=== PATIENT | male | born 1960 | race Caucasian/White ===

== ENCOUNTER 2022-05-11 15:26 | Inpatient (IN) | payer MEDICAID ==
[~2022-05-11] VITALS: Ht 177.8 cm; Wt 65.8 kg
[2022-05-11 16:04] VITALS: BP_SYST 126
[2022-05-11] MEDS ORDERED: NACL 0.9% 1,000 ML IV ONE (16:15)
[2022-05-11 16:51] LABS: BASOPHILS % (AUTO) 0.6 % (0.0-2.0); EOSINOPHILS # (AUTO) 0.5 K/uL (0.0-0.4); EOSINOPHILS % (AUTO) 6.9 % (0.0-4.0); HEMATOCRIT 33.7 % (36-54); HEMOGLOBIN 10.9 g/dL (14.0-18.0); LYMPHOCYTES # (AUTO) 0.6 K/uL (1.0-5.5); LYMPHOCYTES % (AUTO) 9.1 % (20.5-51.5); MEAN CORPUSCULAR HEMOGLOBIN 28 pg (27-31); MEAN CORPUSCULAR HGB CONC 33 % (32-36); MEAN CORPUSCULAR VOLUME 87 fL (79.0-98.0); MONOCYTES # (AUTO) 0.2 K/uL (0.0-1.0); MONOCYTES % (AUTO) 3.2 % (1.7-9.3); NEUTROPHILS # (AUTO) 5.4 K/uL (1.8-7.7); NEUTROPHILS % (AUTO) 80.2 % (40.0-70.0); PLATELET COUNT (AUTO) 110 K/uL (130-430); RED BLOOD CELL COUNT(AUTO) 3.88 MIL/uL (4.2-6.2); RED CELL DISTRIBUTION WIDTH 16.9 % (9.0-15.0); WHITE BLOOD COUNT (AUTO) 6.7 K/uL (4.8-10.8)
[2022-05-11 17:16] LABS: ALANINE AMINOTRANSFERASE 14 U/L (12-78); ALBUMIN 3.4 g/dL (3.4-4.8); ASPARTATE AMINOTRANSFERASE 16 U/L (10-37); CALCIUM 9.6 mg/dL (8.4-11.0); CHLORIDE 102 mmol/L (98-107); CREATININE 0.59 mg/dL (0.55-1.30); GLUCOSE 121 mg/dL (70-99); TOTAL BILIRUBIN 0.4 mg/dL (0.0-1.0); UREA NITROGEN, BLOOD 21 mg/dL (8-21)
[2022-05-11 17:17] LABS: ANION GAP < 3 (5-15); GFR AFRICAN AMERICAN 180 mL/min (>90)
[2022-05-11] MEDS ORDERED: TAMSULOSIN HCL 0.4 MG CAP PO ONE (17:30)
[2022-05-11 23:00] LABS: INR 1.1 (0.80-1.20); PROTHROMBIN TIME 11.5 SECS (9.5-12.5)
[2022-05-11] MEDS ORDERED: ACET325T GT (23:09)
[2022-05-11] MEDS ORDERED: ALBU2.5V7 INH ×2 (23:10→23:11)
[2022-05-11] MEDS ORDERED: NOR10 GT (23:11)
[2022-05-11] MEDS ORDERED: ARGI1POW13 GT (23:13)
[2022-05-11] MEDS ORDERED: LIP20 GT (23:13)
[2022-05-11] MEDS ORDERED: FER300L GT (23:14)
[2022-05-11] MEDS ORDERED: CHLO473M5 PO (23:14)
[2022-05-11] MEDS ORDERED: TAMS-11 GT ×2 (23:15→23:18)
[2022-05-11] MEDS ORDERED: HYDR-4038 GT (23:19)
[2022-05-11] MEDS ORDERED: GEL3000G MC (23:21)
[2022-05-11] MEDS ORDERED: LEVE100S GT (23:23)
[2022-05-11] MEDS ORDERED: MOM GT (23:24)
[2022-05-11] MEDS ORDERED: MULT-1117 GT (23:25)
[2022-05-11] MEDS ORDERED: HYDR-3917 GT (23:28)
[2022-05-11] MEDS ORDERED: PANT40SU2 GT (23:30)
[2022-05-11] MEDS ORDERED: AMIN30LI2 GT (23:31)
[2022-05-11] MEDS ORDERED: SENN-295 GT (23:33)
[2022-05-11] MEDS ORDERED: ASCO500T20 GT (23:34)
[2022-05-11] MEDS ORDERED: UTI-STAT GT (23:42)
[2022-05-12] MEDS ORDERED: MAGNESIUM SULFATE 50 ML IV PRN (09:15)
[2022-05-12] MEDS ORDERED: MUPIROCIN 2% TOPICAL OINTMENT 22 GM NS PRN (09:15)
[2022-05-12] MEDS ORDERED: MORPHINE 2 MG/ML INJ. SYRINGE IVP PRN (09:15)
[2022-05-12] MEDS ORDERED: ACETAMINOPHEN 325 MG TABLET PO PRN ×2 (09:15→12:30)
[2022-05-12] MEDS ORDERED: DOCUSATE SODIUM 100 MG CAPSULE PO PRN (09:15)
[2022-05-12] MEDS ORDERED: LORazepam 2 MG/ML VIAL IVP PRN (09:15)
[2022-05-12] MEDS ORDERED: ZOLPIDEM TARTRATE 5 MG TABLET PO PRN (09:15)
[2022-05-12] MEDS ORDERED: NALOXONE HCL 0.4 MG/ML AMP (NARCAN) IVP PRN ×2 (09:15)
[2022-05-12] MEDS ORDERED: ONDANSETRON HCL 4 MG/2 ML VIAL IVP PRN (09:15)
[2022-05-12 10:23] VITALS: BP_SYST 121
[2022-05-12] MEDS ORDERED: levETIRAcetam 500 MG TABLET ONE (18:11)
[2022-05-12] MEDS: LevETIRAcetam 500 MG/5 ML UDC ORAL LIQUID GT SCH (19:37)
[2022-05-12 23:08] VITALS: BP_SYST 147
[2022-05-12] MEDS: ATORVASTATIN 20 MG TABLET GT SCH (23:39)
[2022-05-12] MEDS: TAMSULOSIN HCL 0.4 MG CAP GT SCH (23:39)
[2022-05-12] MEDS: POTASSIUM CHLORIDE 20 MEQ TAB.PRT.SR PO PRN (23:45)
[2022-05-13 00:44] VITALS: BP_SYST 130
[2022-05-13 08:09] VITALS: BP_SYST 117
[2022-05-13] MEDS: LevETIRAcetam 500 MG/5 ML UDC ORAL LIQUID GT SCH ×2 (08:30→22:06)
[2022-05-13] MEDS: amLODIPine BESYLATE 10 MG TABLET GT SCH (08:31)
[2022-05-13] MEDS: ASCORBIC ACID 500 MG TABLET GT SCH (08:31)
[2022-05-13] MEDS: IPRATROPIUM/ALBUTEROL SULFATE 3 ML AMPUL.NEB (DUONEB) INH PRN (11:17)
[2022-05-13] MEDS: FAMOTIDINE PF 20 MG/2 ML VIAL IVP SCH (11:18)
[2022-05-13 12:00] VITALS: BP_SYST 125
[2022-05-13 16:00] VITALS: BP_SYST 119
[2022-05-13 16:13] LABS: BASOPHILS % (AUTO) 0.3 % (0.0-2.0); EOSINOPHILS # (AUTO) 0.1 K/uL (0.0-0.4); EOSINOPHILS % (AUTO) 2.6 % (0.0-4.0); HEMATOCRIT 26.7 % (36-54); HEMOGLOBIN 8.9 g/dL (14.0-18.0); LYMPHOCYTES # (AUTO) 0.8 K/uL (1.0-5.5); LYMPHOCYTES % (AUTO) 15.9 % (20.5-51.5); MEAN CORPUSCULAR HEMOGLOBIN 29 pg (27-31); MEAN CORPUSCULAR HGB CONC 34 % (32-36); MEAN CORPUSCULAR VOLUME 87 fL (79.0-98.0); MONOCYTES # (AUTO) 0.5 K/uL (0.0-1.0); MONOCYTES % (AUTO) 9.7 % (1.7-9.3); NEUTROPHILS # (AUTO) 3.6 K/uL (1.8-7.7); NEUTROPHILS % (AUTO) 71.5 % (40.0-70.0); PLATELET COUNT (AUTO) 99 K/uL (130-430); RED BLOOD CELL COUNT(AUTO) 3.07 MIL/uL (4.2-6.2); WHITE BLOOD COUNT (AUTO) 5.1 K/uL (4.8-10.8)
[2022-05-13 17:07] LABS: CREATININE 0.75 mg/dL (0.55-1.30)
[2022-05-13] MEDS ORDERED: POTASSIUM CHLORIDE 40 MEQ, LIDOCAINE JECT 2% PF 100 MG 50 MG in NS 250 ML IV ONE (18:00)
[2022-05-13 20:00] VITALS: BP_SYST 161
[2022-05-13] MEDS: MORPHINE 2 MG/ML INJ. SYRINGE IVP PRN (21:43)
[2022-05-13] MEDS: TAMSULOSIN HCL 0.4 MG CAP GT SCH (22:07)
[2022-05-13] MEDS: ATORVASTATIN 20 MG TABLET GT SCH (22:11)
[2022-05-13] MEDS: POTASSIUM CHLORIDE 20 MEQ TAB.PRT.SR PO PRN (22:12)
[2022-05-14] MEDS: HEPARIN SODIUM,PORCINE 5,000 UNITS/ML VIAL SUBCUT SCH ×3 (00:41→21:00)
[2022-05-14 01:01] VITALS: BP_SYST 133
[2022-05-14] MEDS: IPRATROPIUM/ALBUTEROL SULFATE 3 ML AMPUL.NEB (DUONEB) INH PRN ×2 (04:06→11:35)
[2022-05-14 07:32] VITALS: BP_SYST 125
[2022-05-14 08:18] LABS: CALCIUM 8.8 mg/dL (8.4-11.0); CREATININE 0.69 mg/dL (0.55-1.30)
[2022-05-14 08:25] LABS: BASOPHILS % (AUTO) 0.4 % (0.0-2.0); EOSINOPHILS # (AUTO) 0.1 K/uL (0.0-0.4); HEMOGLOBIN 9.5 g/dL (14.0-18.0); LYMPHOCYTES % (AUTO) 22.4 % (20.5-51.5); MEAN CORPUSCULAR HEMOGLOBIN 29 pg (27-31); MEAN CORPUSCULAR HGB CONC 33 % (32-36); MEAN CORPUSCULAR VOLUME 88 fL (79.0-98.0); MONOCYTES # (AUTO) 0.5 K/uL (0.0-1.0); NEUTROPHILS # (AUTO) 2.8 K/uL (1.8-7.7); NEUTROPHILS % (AUTO) 63.2 % (40.0-70.0); PLATELET COUNT (AUTO) 102 K/uL (130-430); RED BLOOD CELL COUNT(AUTO) 3.31 MIL/uL (4.2-6.2); RED CELL DISTRIBUTION WIDTH 17.5 % (9.0-15.0); WHITE BLOOD COUNT (AUTO) 4.4 K/uL (4.8-10.8)
[2022-05-14] MEDS: FAMOTIDINE PF 20 MG/2 ML VIAL IVP SCH (09:03)
[2022-05-14] MEDS: LevETIRAcetam 500 MG/5 ML UDC ORAL LIQUID GT SCH ×2 (09:04→23:06)
[2022-05-14] MEDS: ASCORBIC ACID 500 MG TABLET GT SCH (09:06)
[2022-05-14] MEDS: amLODIPine BESYLATE 10 MG TABLET GT SCH (09:07)
[2022-05-14 11:34] VITALS: BP_SYST 121
[2022-05-14] MEDS: MORPHINE 2 MG/ML INJ. SYRINGE IVP PRN (12:49)
[2022-05-14 15:32] VITALS: BP_SYST 128
[2022-05-14 20:00] VITALS: BP_SYST 148
[2022-05-14] MEDS: ATORVASTATIN 20 MG TABLET GT SCH (23:06)
[2022-05-14] MEDS: POTASSIUM CHLORIDE 20 MEQ TAB.PRT.SR PO PRN (23:06)
[2022-05-14] MEDS: TAMSULOSIN HCL 0.4 MG CAP GT SCH (23:07)
[2022-05-15 01:05] VITALS: BP_SYST 136
[2022-05-15 07:25] LABS: BASOPHILS % (AUTO) 0.2 % (0.0-2.0); EOSINOPHILS # (AUTO) 0.1 K/uL (0.0-0.4); EOSINOPHILS % (AUTO) 2.4 % (0.0-4.0); HEMATOCRIT 29.9 % (36-54); HEMOGLOBIN 9.8 g/dL (14.0-18.0); LYMPHOCYTES # (AUTO) 0.9 K/uL (1.0-5.5); LYMPHOCYTES % (AUTO) 17.6 % (20.5-51.5); MEAN CORPUSCULAR HEMOGLOBIN 29 pg (27-31); MEAN CORPUSCULAR HGB CONC 33 % (32-36); MEAN CORPUSCULAR VOLUME 88 fL (79.0-98.0); MONOCYTES # (AUTO) 0.3 K/uL (0.0-1.0); MONOCYTES % (AUTO) 6.6 % (1.7-9.3); NEUTROPHILS # (AUTO) 3.8 K/uL (1.8-7.7); NEUTROPHILS % (AUTO) 73.2 % (40.0-70.0); PLATELET COUNT (AUTO) 115 K/uL (130-430); RED CELL DISTRIBUTION WIDTH 17.1 % (9.0-15.0); WHITE BLOOD COUNT (AUTO) 5.1 K/uL (4.8-10.8)
[2022-05-15 08:00] VITALS: BP_SYST 141
[2022-05-15 08:29] LABS: CALCIUM 9.7 mg/dL (8.4-11.0); CREATININE 0.75 mg/dL (0.55-1.30)
[2022-05-15] MEDS: LevETIRAcetam 500 MG/5 ML UDC ORAL LIQUID GT SCH (10:16)
[2022-05-15] MEDS: ASCORBIC ACID 500 MG TABLET GT SCH (10:16)
[2022-05-15] MEDS: amLODIPine BESYLATE 10 MG TABLET GT SCH (10:16)
[2022-05-15] MEDS: FAMOTIDINE PF 20 MG/2 ML VIAL IVP SCH (10:16)
[2022-05-15] MEDS: HEPARIN SODIUM,PORCINE 5,000 UNITS/ML VIAL SUBCUT SCH (10:21)
[2022-05-15 11:34] VITALS: BP_SYST 125
[2022-05-15] MEDS: POTASSIUM CHLORIDE 20 MEQ TAB.PRT.SR PO PRN (12:23)
[2022-05-15] MEDS ORDERED: 0.45% NS 500 ML IV SCH (12:45)
[2022-05-15] MEDS ORDERED: [UNRECOGNIZED DRUG - CODE] IV (12:47)
[2022-05-15] MEDS ORDERED: NL IV (12:47)
[2022-05-15 13:45] VITALS: BP_SYST 125
[2022-05-15] MEDS ORDERED: 0.45% NACL 1,000 ML IV SCH (13:45)
== END 2022-05-15 14:22 | DRG 466 ==
LOC: EDSEX 15:26 → SED 15:26 → STU 22:34
PROVIDERS: ADMIT General Practice; ATTEND General Practice
PROC: 5A1945Z Respiratory Ventilation, 24-96 Consecutive Hours (ICD-10-PCS; principal; 2022-05-11)
DX: T83.018A Breakdown (mechanical) of other urinary catheter, initial encounter (principal); G82.50 Quadriplegia, unspecified; J96.10 Chronic respiratory failure, unspecified whether with hypoxia or hypercapnia; L89.309 Pressure ulcer of unspecified buttock, unspecified stage; L89.109 Pressure ulcer of unspecified part of back, unspecified stage; D63.8 Anemia in other chronic diseases classified elsewhere; R33.9 Retention of urine, unspecified; K21.9 Gastro-esophageal reflux disease without esophagitis; Z93.0 Tracheostomy status; E87.6 Hypokalemia; R13.10 Dysphagia, unspecified; Y83.8 Other surgical procedures as the cause of abnormal reaction of the patient, or of later complication, without mention of misadventure at the time of the procedure; Z20.822 Contact with and (suspected) exposure to COVID-19; E78.5 Hyperlipidemia, unspecified; G40.909 Epilepsy, unspecified, not intractable, without status epilepticus; Z59.00 Homelessness unspecified; Z74.01 Bed confinement status; Z86.73 Personal history of transient ischemic attack (TIA), and cerebral infarction without residual deficits; Z87.440 Personal history of urinary (tract) infections; Z93.3 Colostomy status; Z98.2 Presence of cerebrospinal fluid drainage device; Y92.89 Other specified places as the place of occurrence of the external cause
CPT/HCPCS: 36415; 71045; 76770; 80048; 80053; 83036; 83605; 83735; 85025; 85610-TC; 85730-TC; 87040; 87070-TC; 87081; 87205-TC; 93005; 94002; 94003; 94640; 94760; 96360; 99285; G0378; J1644; J1953; J2270; J3480; J3490; J7050

== ENCOUNTER 2022-08-01 10:23 | Inpatient (IN) | payer MEDICAID ==
[~2022-08-01] VITALS: Ht 170.2 cm; Wt 71.7 kg
[2022-08-01] VITALS (17 sets, daily range): BP systolic 84–119
[~2022-08-01 10:23] MED LIST: ACET325T GT; ALBU2.5V7 INH; AMIN30LI2 GT; ARGI1POW13 GT; ASCO500T20 GT; CHLO473M5 PO; FER300L GT; GEL3000G MC; HYDR-3917 GT; HYDR-4038 GT; LEVE100S GT; LIP20 GT; MOM GT; MULT-1117 GT; NOR10 GT; PANT40SU2 GT; SENN-295 GT; TAMS-11 GT; UTI-STAT GT; [UNRECOGNIZED DRUG - CODE] IV
[2022-08-01 11:45] LABS: HEMATOCRIT 39.3 % (36-54); HEMOGLOBIN 12.7 g/dL (14.0-18.0); MEAN CORPUSCULAR HEMOGLOBIN 30 pg (27-31); MEAN CORPUSCULAR HGB CONC 32 % (32-36); MEAN CORPUSCULAR VOLUME 92 fL (79.0-98.0); PLATELET COUNT (AUTO) 182 K/uL (130-430); RED BLOOD CELL COUNT(AUTO) 4.28 MIL/uL (4.2-6.2); RED CELL DISTRIBUTION WIDTH 18.4 % (9.0-15.0); WHITE BLOOD COUNT (AUTO) 21.1 K/uL (4.8-10.8)
[2022-08-01 11:56] LABS: BILIRUBIN,URINE NEGATIVE (NEGATIVE); BLOOD, URINE NEGATIVE (NEGATIVE); CLARITY/URINE CLOUDY (CLEAR); COLOR,URINE YELLOW (YELLOW); GLUCOSE,URINE NEGATIVE (NEGATIVE); KETONES,URINE NEGATIVE (NEGATIVE); LEUKOCYTE ESTERASE ,URINE NEGATIVE (NEGATIVE); NITRITE, URINE NEGATIVE (NEGATIVE); PH,URINE >=9.0 (5.0-8.0); PROTEIN URINE 1+ (NEGATIVE); UROBILINOGEN,URINE 0.2 (0.2-1.0)
[2022-08-01 12:02] LABS: ANION GAP 15 (5-15); CHLORIDE 99 mmol/L (98-107); CREATININE 2.69 mg/dL (0.55-1.30); GLUCOSE 129 mg/dL (70-99); UREA NITROGEN, BLOOD 52 mg/dL (8-21)
[2022-08-01 12:03] LABS: BACTERIA,URINE None Seen /HPF (None Seen); RBC,URINE 0-3 /HPF (0-3); URINE AMORPHOUS PHOSPHATES 1+ /HPF (None Seen); WBC,URINE 0-3 /HPF (0-3)
[2022-08-01 12:05] LABS: GFR AFRICAN AMERICAN 31 mL/min (>90)
[2022-08-01 12:09] LABS: ALANINE AMINOTRANSFERASE 39 U/L (12-78); ALBUMIN 3.2 g/dL (3.4-4.8); ASPARTATE AMINOTRANSFERASE 55 U/L (10-37); TOTAL BILIRUBIN 2.5 mg/dL (0.0-1.0)
[2022-08-01] MEDS ORDERED: NACL 0.9% 2,000 ML IV ONE (12:15)
[2022-08-01] MEDS ORDERED: cefTRIAXone 1 GM in D5W 50 ML IV ONE (12:15)
[2022-08-01] MEDS ORDERED: cefTRIAXone 1 GM VIAL ONE (12:29)
[2022-08-01 13:04] LABS: BAND % (MANUAL) 31 % (0-6); BASOPHILS % (MANUAL) 0 % (0-2); EOSINOPHILS % (MANUAL) 0 % (0-7); LYMPHOCYTES % (MANUAL) 1 % (20-46); METAMYELOCYTES % 2 % (0-0); MONOCYTES % (MANUAL) 2 % (0-11)
[2022-08-01] MEDS ORDERED: IPRA0.2S53 HHN (13:31)
[2022-08-01] MEDS ORDERED: TAMS0.4C96 PO (13:31)
[2022-08-01] MEDS ORDERED: ENOX40DI8 SUBCUT (13:31)
[2022-08-01] MEDS ORDERED: AMLO10TA88 PO (13:31)
[2022-08-01] MEDS ORDERED: POLY238P32 PO (13:31)
[2022-08-01] MEDS ORDERED: LEVE100S (13:31)
[2022-08-01] MEDS ORDERED: ATOR20TA64 PO (13:31)
[2022-08-01] MEDS ORDERED: IPRA3AMP9 HHN (13:31)
[2022-08-01] MEDS ORDERED: NACL 0.9% 1,000 ML IV ONE (14:00)
[2022-08-01] MEDS ORDERED: NACL 0.9% 1,000 ML IV SCH (14:45)
[2022-08-01] MEDS ORDERED: PIPERACILLIN/TAZOBACTAM 2.25 GM in NS 50 ML IV ONE (15:00)
[2022-08-01] MEDS ORDERED: MEROPENEM 500 MG in NS 50 ML IV SCH (16:15)
[2022-08-01] MEDS ORDERED: NOREPINEPHRINE 4 MG/4 ML VIAL IV ONE (17:06)
[2022-08-01] MEDS ORDERED: ENOXAPARIN SODIUM 30 MG/0.3 ML SYRINGE SUBCUT ONE (17:15)
[2022-08-01] MEDS ORDERED: NALOXONE HCL 0.4 MG/ML AMP (NARCAN) IVP PRN (17:15)
[2022-08-01] MEDS ORDERED: HYDROcodone/ACETAMIN 5-325 MG TAB (NORCO/ VICODIN) GT PRN (17:15)
[2022-08-01] MEDS: NACL 0.9% 1,000 ML IV SCH ×2 (17:25→18:35)
[2022-08-01 17:48] LABS: INR 1.3 (0.80-1.20); PROTHROMBIN TIME 13.2 SECS (9.5-12.5)
[2022-08-01] MEDS ORDERED: VANCOMYCIN HCL 750 MG in NS 250 ML IV SCH (18:00)
[2022-08-01] MEDS ORDERED: PIPERACILLIN/TAZOBACTAM 2.25 GM/ D5W 50 ML IV SCH ×2 (18:00)
[2022-08-01] MEDS: PIPERACILLIN/TAZO 2.25G/DEX-IS 50 ML IV SCH (18:40)
[2022-08-01 19:57] LABS: CALCIUM 8.2 mg/dL (8.4-11.0); CREATININE 3.04 mg/dL (0.55-1.30)
[2022-08-01] MEDS: LevETIRAcetam 500 MG/5 ML UDC ORAL LIQUID GT SCH (20:25)
[2022-08-01] MEDS: CHLORHEXIDINE GLUC 0.12% 15 ML MOUTHWASH UDC MM SCH (20:25)
[2022-08-01] MEDS: metroNIDAZOLE 500 mg/NS 100 ML IV SCH (22:37)
[2022-08-02] VITALS (32 sets, daily range): BP systolic 82–140
[2022-08-02 01:01] LABS: CALCIUM 8.5 mg/dL (8.4-11.0); CREATININE 2.8 mg/dL (0.55-1.30)
[2022-08-02] MEDS: NACL 0.9% 1,000 ML IV SCH ×3 (01:42→14:46)
[2022-08-02] MEDS: PIPERACILLIN/TAZO 2.25G/DEX-IS 50 ML IV SCH ×5 (01:42→23:53)
[2022-08-02] MEDS: NOREPINEPHRINE BITARTRATE 4 MG in D5W 246 ML IV PRN ×2 (02:40→10:59)
[2022-08-02] MEDS: ACETAMINOPHEN 325 MG TABLET GT PRN (05:03)
[2022-08-02] MEDS: metroNIDAZOLE 500 mg/NS 100 ML IV SCH ×3 (05:04→21:44)
[2022-08-02 06:04] LABS: BASOPHILS % (AUTO) 0.1 % (0.0-2.0); EOSINOPHILS % (AUTO) 0.3 % (0.0-4.0); HEMATOCRIT 26.2 % (36-54); HEMOGLOBIN 8.3 g/dL (14.0-18.0); LYMPHOCYTES # (AUTO) 0.4 K/uL (1.0-5.5); LYMPHOCYTES % (AUTO) 3.3 % (20.5-51.5); MEAN CORPUSCULAR HEMOGLOBIN 30 pg (27-31); MEAN CORPUSCULAR HGB CONC 32 % (32-36); MEAN CORPUSCULAR VOLUME 93 fL (79.0-98.0); MONOCYTES # (AUTO) 0.5 K/uL (0.0-1.0); MONOCYTES % (AUTO) 4.2 % (1.7-9.3); NEUTROPHILS # (AUTO) 11.4 K/uL (1.8-7.7); NEUTROPHILS % (AUTO) 92.1 % (40.0-70.0); PLATELET COUNT (AUTO) 73 K/uL (130-430); RED BLOOD CELL COUNT(AUTO) 2.82 MIL/uL (4.2-6.2); RED CELL DISTRIBUTION WIDTH 18.4 % (9.0-15.0); WHITE BLOOD COUNT (AUTO) 12.3 K/uL (4.8-10.8)
[2022-08-02 06:20] LABS: ALBUMIN 1.5 g/dL (3.4-4.8); TOTAL BILIRUBIN 0.6 mg/dL (0.0-1.0)
[2022-08-02 09:00] LABS: CALCIUM 5.9 mg/dL (8.4-11.0)
[2022-08-02] MEDS ORDERED: ATORVASTATIN 20 MG TABLET PO SCH (09:00)
[2022-08-02] MEDS: CHLORHEXIDINE GLUC 0.12% 15 ML MOUTHWASH UDC MM SCH ×2 (10:24→21:42)
[2022-08-02] MEDS: LANSOPRAZOLE 30 MG CAPSULE.DR GT SCH (10:24)
[2022-08-02] MEDS: SENNOSIDES/DOCUSATE SODIUM 1 TAB TABLET(SENOKOT-S) GT SCH (10:24)
[2022-08-02] MEDS: LevETIRAcetam 500 MG/5 ML UDC ORAL LIQUID GT SCH ×2 (10:24→21:41)
[2022-08-02] MEDS: MULTIVITAMINS TAB 1 TABLET GT SCH (10:25)
[2022-08-02] MEDS: ENOXAPARIN SODIUM 30 MG/0.3 ML SYRINGE SUBCUT SCH (10:26)
[2022-08-02] MEDS: POLYETHYLENE GLYCOL 3350, 17 GM/ POWD.PACK PO SCH (10:27)
[2022-08-02] MEDS ORDERED: POTASSIUM CHLORIDE 40 MEQ in D5W 250 ML IV ONE ×2 (12:00→14:00)
[2022-08-02 12:32] LABS: BASOPHILS % (AUTO) 0.1 % (0.0-2.0); HEMATOCRIT 34.4 % (36-54); HEMOGLOBIN 10.9 g/dL (14.0-18.0); LYMPHOCYTES # (AUTO) 0.5 K/uL (1.0-5.5); LYMPHOCYTES % (AUTO) 2.8 % (20.5-51.5); MEAN CORPUSCULAR HEMOGLOBIN 29 pg (27-31); MEAN CORPUSCULAR HGB CONC 32 % (32-36); MEAN CORPUSCULAR VOLUME 93 fL (79.0-98.0); MONOCYTES # (AUTO) 0.5 K/uL (0.0-1.0); MONOCYTES % (AUTO) 2.9 % (1.7-9.3); NEUTROPHILS # (AUTO) 15.1 K/uL (1.8-7.7); NEUTROPHILS % (AUTO) 83.2 % (40.0-70.0); PLATELET COUNT (AUTO) 77 K/uL (130-430); RED CELL DISTRIBUTION WIDTH 17.9 % (9.0-15.0); WHITE BLOOD COUNT (AUTO) 18.1 K/uL (4.8-10.8)
[2022-08-02] MEDS ORDERED: CALCIUM GLUCONATE 2 GM in NS 100 ML IV ONE (13:00)
[2022-08-02] MEDS ORDERED: COMMUNICATION ORDER XX ONE (13:30)
[2022-08-02] MEDS ORDERED: NOREPINEPHRINE 4 MG/4 ML VIAL IV ONE (13:53)
[2022-08-02] MEDS: NOREPINEPHRINE BITARTRATE 16 MG in D5W 234 ML IV PRN ×2 (14:44→22:17)
[2022-08-02] MEDS ORDERED: MENTHOL/ZINC OXIDE 113 GM OINT. TP PRN (16:15)
[2022-08-02] MEDS: ALBUMIN HUMAN 25% 100 ML IV SCH ×2 (18:48→21:44)
[2022-08-02] MEDS: D5LR 1,000 ML IV SCH (21:36)
[2022-08-02] MEDS: LACTOBACILLUS RHAMNOSUS GG 1 CAP CAPSULE GT SCH (21:44)
[2022-08-02] MEDS: CIPROFLOXACIN HCL 500 MG TABLET GT SCH (21:45)
[2022-08-03] VITALS (43 sets, daily range): BP systolic 92–155
[2022-08-03] MEDS: ACETAMINOPHEN 325 MG TABLET GT PRN ×2 (00:41→00:42)
[2022-08-03] MEDS: ALBUMIN HUMAN 25% 100 ML IV SCH (02:33)
[2022-08-03] MEDS: D5LR 1,000 ML IV SCH ×3 (05:00→14:34)
[2022-08-03] MEDS: metroNIDAZOLE 500 mg/NS 100 ML IV SCH ×3 (05:18→21:20)
[2022-08-03] MEDS: PIPERACILLIN/TAZO 2.25G/DEX-IS 50 ML IV SCH (05:19)
[2022-08-03 06:54] LABS: ALBUMIN 3.1 g/dL (3.4-4.8); CALCIUM 8.9 mg/dL (8.4-11.0); CREATININE 1.44 mg/dL (0.55-1.30); TOTAL BILIRUBIN 0.8 mg/dL (0.0-1.0)
[2022-08-03 07:01] LABS: HEMATOCRIT 22.8 % (36-54); HEMOGLOBIN 7.6 g/dL (14.0-18.0); MEAN CORPUSCULAR HEMOGLOBIN 31 pg (27-31); MEAN CORPUSCULAR HGB CONC 34 % (32-36); MEAN CORPUSCULAR VOLUME 92 fL (79.0-98.0); RED BLOOD CELL COUNT(AUTO) 2.47 MIL/uL (4.2-6.2); RED CELL DISTRIBUTION WIDTH 17.6 % (9.0-15.0); WHITE BLOOD COUNT (AUTO) 8.5 K/uL (4.8-10.8)
[2022-08-03] MEDS: ALBUTEROL SULFATE 0.083% 2.5 MG/3 ML VIAL.NEB INH PRN (07:52)
[2022-08-03] MEDS: LACTOBACILLUS RHAMNOSUS GG 1 CAP CAPSULE GT SCH ×2 (08:41→21:17)
[2022-08-03] MEDS: LANSOPRAZOLE 30 MG CAPSULE.DR GT SCH (08:42)
[2022-08-03] MEDS: LevETIRAcetam 500 MG/5 ML UDC ORAL LIQUID GT SCH ×2 (08:42→21:19)
[2022-08-03] MEDS: ATORVASTATIN 20 MG TABLET GT SCH (08:43)
[2022-08-03] MEDS: MULTIVITAMINS TAB 1 TABLET GT SCH (08:43)
[2022-08-03] MEDS: POLYETHYLENE GLYCOL 3350, 17 GM/ POWD.PACK PO SCH (08:44)
[2022-08-03] MEDS: ENOXAPARIN SODIUM 30 MG/0.3 ML SYRINGE SUBCUT SCH (08:44)
[2022-08-03] MEDS: SENNOSIDES/DOCUSATE SODIUM 1 TAB TABLET(SENOKOT-S) GT SCH (08:44)
[2022-08-03] MEDS: CHLORHEXIDINE GLUC 0.12% 15 ML MOUTHWASH UDC MM SCH ×2 (08:44→21:19)
[2022-08-03] MEDS: BALSAM PERU/CASTOR OIL 56.7 GM OINT...G. TP SCH (08:45)
[2022-08-03] MEDS: CIPROFLOXACIN HCL 500 MG TABLET GT SCH (08:45)
[2022-08-03 09:18] LABS: PLATELET COUNT (AUTO) 35 K/uL (130-430)
[2022-08-03 10:02] LABS: BAND % (MANUAL) 24 % (0-6); BASOPHILS % (MANUAL) 0 % (0-2); EOSINOPHILS % (MANUAL) 0 % (0-7); LYMPHOCYTES % (MANUAL) 4 % (20-46); METAMYELOCYTES % 4 % (0-0); MONOCYTES % (MANUAL) 12 % (0-11)
[2022-08-03] MEDS ORDERED: CEFEPIME 2 GM in D5W 100 ML IV SCH (11:00)
[2022-08-03] MEDS ORDERED: FUROSEMIDE 20 MG/2 ML VIAL IVP ONE (11:45)
[2022-08-03 12:20] LABS: EOSINOPHILS # (AUTO) 0.1 K/uL (0.0-0.4); HEMOGLOBIN 8.6 g/dL (14.0-18.0); MEAN CORPUSCULAR HEMOGLOBIN 30 pg (27-31); MEAN CORPUSCULAR HGB CONC 32 % (32-36); MONOCYTES # (AUTO) 0.2 K/uL (0.0-1.0)
[2022-08-03 12:27] LABS: BASOPHILS % (AUTO) 0.2 % (0.0-2.0); EOSINOPHILS % (AUTO) 2.2 % (0.0-4.0); HEMATOCRIT 26.9 % (36-54); LYMPHOCYTES # (AUTO) 1.2 K/uL (1.0-5.5); LYMPHOCYTES % (AUTO) 32.6 % (20.5-51.5); MEAN CORPUSCULAR VOLUME 94 fL (79.0-98.0); NEUTROPHILS # (AUTO) 2.3 K/uL (1.8-7.7); RED BLOOD CELL COUNT(AUTO) 2.86 MIL/uL (4.2-6.2); RED CELL DISTRIBUTION WIDTH 18.3 % (9.0-15.0); WHITE BLOOD COUNT (AUTO) 3.8 K/uL (4.8-10.8)
[2022-08-03 12:29] LABS: CALCIUM 8.6 mg/dL (8.4-11.0); CREATININE 1.32 mg/dL (0.55-1.30)
[2022-08-03] MEDS ORDERED: AMIODARONE HCL 450 MG in D5W 241 ML IV SCH (12:30)
[2022-08-03 12:51] LABS: PLATELET COUNT (AUTO) 67 K/uL (130-430)
[2022-08-03] MEDS ORDERED: AMIODARONE HCL 150 MG/3ML VIAL IVP ONE (12:55)
[2022-08-03] MEDS ORDERED: K PHOS 15 MM in NS 250 ML IV ONE (13:30)
[2022-08-03] MEDS ORDERED: POTASSIUM CHLORIDE 40 MEQ in NS 250 ML IV SCH (14:00)
[2022-08-03] MEDS ORDERED: PANTOPRAZOLE SODIUM 80 MG in NS 100 ML IVP ONE (14:00)
[2022-08-03] MEDS: PANTOPRAZOLE SODIUM 40 MG in NS 50 ML IV SCH ×2 (14:37→20:54)
[2022-08-03] MEDS: AMIODARONE HCL 450 MG in D5W 241 ML IV SCH (17:55)
[2022-08-04] VITALS (48 sets, daily range): BP systolic 98–174
[2022-08-04] MEDS: PANTOPRAZOLE SODIUM 40 MG in NS 50 ML IV SCH ×5 (01:00→20:56)
[2022-08-04] MEDS: metroNIDAZOLE 500 mg/NS 100 ML IV SCH ×3 (06:22→22:03)
[2022-08-04] MEDS: ACETAMINOPHEN 325 MG TABLET GT PRN ×3 (06:37→20:03)
[2022-08-04 07:24] LABS: EOSINOPHILS % (AUTO) 0.5 % (0.0-4.0); HEMATOCRIT 22.9 % (36-54); HEMOGLOBIN 7.5 g/dL (14.0-18.0); LYMPHOCYTES # (AUTO) 0.3 K/uL (1.0-5.5); LYMPHOCYTES % (AUTO) 4.4 % (20.5-51.5); MEAN CORPUSCULAR HEMOGLOBIN 30 pg (27-31); MEAN CORPUSCULAR HGB CONC 33 % (32-36); MEAN CORPUSCULAR VOLUME 93 fL (79.0-98.0); MONOCYTES # (AUTO) 0.1 K/uL (0.0-1.0); NEUTROPHILS # (AUTO) 6.1 K/uL (1.8-7.7); NEUTROPHILS % (AUTO) 93.1 % (40.0-70.0); RED BLOOD CELL COUNT(AUTO) 2.47 MIL/uL (4.2-6.2); RED CELL DISTRIBUTION WIDTH 17.9 % (9.0-15.0); WHITE BLOOD COUNT (AUTO) 6.5 K/uL (4.8-10.8)
[2022-08-04 07:51] LABS: ALBUMIN 2.5 g/dL (3.4-4.8); CALCIUM 8.4 mg/dL (8.4-11.0); CREATININE 1.25 mg/dL (0.55-1.30); PHOSPHORUS 2.1 mg/dL (2.7-4.5); TOTAL BILIRUBIN 0.8 mg/dL (0.0-1.0)
[2022-08-04 08:25] LABS: PLATELET COUNT (AUTO) 30 K/uL (130-430)
[2022-08-04] MEDS: D5LR 1,000 ML IV SCH (08:45)
[2022-08-04] MEDS: LACTOBACILLUS RHAMNOSUS GG 1 CAP CAPSULE GT SCH ×2 (08:57→20:54)
[2022-08-04] MEDS: ATORVASTATIN 20 MG TABLET GT SCH (08:58)
[2022-08-04] MEDS: LevETIRAcetam 500 MG/5 ML UDC ORAL LIQUID GT SCH ×2 (08:58→20:54)
[2022-08-04] MEDS: MULTIVITAMINS TAB 1 TABLET GT SCH (08:59)
[2022-08-04] MEDS: SENNOSIDES/DOCUSATE SODIUM 1 TAB TABLET(SENOKOT-S) GT SCH (08:59)
[2022-08-04] MEDS: CHLORHEXIDINE GLUC 0.12% 15 ML MOUTHWASH UDC MM SCH ×2 (09:00→20:54)
[2022-08-04] MEDS: POLYETHYLENE GLYCOL 3350, 17 GM/ POWD.PACK PO SCH (09:00)
[2022-08-04] MEDS: BALSAM PERU/CASTOR OIL 56.7 GM OINT...G. TP SCH (09:00)
[2022-08-04] MEDS ORDERED: GASTROGRAFIN 120 ML ONE (09:37)
[2022-08-04] MEDS ORDERED: KCL 40 mEq in 100 mL (PREMIX) 100 ML IV ONE (10:15)
[2022-08-04 12:42] LABS: BASOPHILS % (AUTO) 0.1 % (0.0-2.0); EOSINOPHILS % (AUTO) 0.4 % (0.0-4.0); HEMATOCRIT 23.9 % (36-54); HEMOGLOBIN 7.7 g/dL (14.0-18.0); LYMPHOCYTES # (AUTO) 0.3 K/uL (1.0-5.5); LYMPHOCYTES % (AUTO) 3.9 % (20.5-51.5); MEAN CORPUSCULAR HEMOGLOBIN 30 pg (27-31); MEAN CORPUSCULAR HGB CONC 32 % (32-36); MEAN CORPUSCULAR VOLUME 93 fL (79.0-98.0); MONOCYTES # (AUTO) 0.1 K/uL (0.0-1.0); MONOCYTES % (AUTO) 1.6 % (1.7-9.3); RED BLOOD CELL COUNT(AUTO) 2.56 MIL/uL (4.2-6.2); RED CELL DISTRIBUTION WIDTH 17.8 % (9.0-15.0); WHITE BLOOD COUNT (AUTO) 7.4 K/uL (4.8-10.8)
[2022-08-04 13:00] LABS: INR 1.5 (0.80-1.20); PROTHROMBIN TIME 14.5 SECS (9.5-12.5)
[2022-08-04 13:01] LABS: ALBUMIN 2.6 g/dL (3.4-4.8); CALCIUM 8.6 mg/dL (8.4-11.0); CREATININE 1.04 mg/dL (0.55-1.30); TOTAL BILIRUBIN 0.8 mg/dL (0.0-1.0)
[2022-08-04 13:02] LABS: PLATELET COUNT (AUTO) 34 K/uL (130-430)
[2022-08-04] MEDS ORDERED: PHYTONADIONE 10 MG in NS 50 ML IV ONE (15:30)
[2022-08-04] MEDS: D5W 1,000 ML IV SCH (17:48)
[2022-08-04] MEDS: AMIODARONE HCL 450 MG in D5W 241 ML IV SCH (18:49)
[2022-08-04] MEDS ORDERED: cloNIDine HCL 0.2 MG TABLET GT PRN (20:37)
[2022-08-05] VITALS (41 sets, daily range): BP systolic 94–155
[2022-08-05] MEDS: PANTOPRAZOLE SODIUM 40 MG in NS 50 ML IV SCH ×5 (01:46→22:41)
[2022-08-05] MEDS: ACETAMINOPHEN 650 MG/20.3 ML UDC GT PRN (03:29)
[2022-08-05] MEDS: D5LR 1,000 ML IV SCH (04:42)
[2022-08-05] MEDS: metroNIDAZOLE 500 mg/NS 100 ML IV SCH ×3 (05:21→22:41)
[2022-08-05 07:19] LABS: BASOPHILS % (AUTO) 0.1 % (0.0-2.0); EOSINOPHILS % (AUTO) 0.3 % (0.0-4.0); HEMATOCRIT 22.4 % (36-54); HEMOGLOBIN 7.3 g/dL (14.0-18.0); LYMPHOCYTES # (AUTO) 0.4 K/uL (1.0-5.5); LYMPHOCYTES % (AUTO) 8.2 % (20.5-51.5); MEAN CORPUSCULAR HEMOGLOBIN 30 pg (27-31); MEAN CORPUSCULAR HGB CONC 33 % (32-36); MEAN CORPUSCULAR VOLUME 93 fL (79.0-98.0); MONOCYTES # (AUTO) 0.2 K/uL (0.0-1.0); MONOCYTES % (AUTO) 3.2 % (1.7-9.3); NEUTROPHILS # (AUTO) 4.4 K/uL (1.8-7.7); NEUTROPHILS % (AUTO) 88.2 % (40.0-70.0); RED BLOOD CELL COUNT(AUTO) 2.42 MIL/uL (4.2-6.2); RED CELL DISTRIBUTION WIDTH 17.4 % (9.0-15.0)
[2022-08-05 07:33] LABS: PLATELET COUNT (AUTO) 29 K/uL (130-430)
[2022-08-05 07:39] LABS: INR 1.3 (0.80-1.20); PROTHROMBIN TIME 12.6 SECS (9.5-12.5)
[2022-08-05 07:52] LABS: ALBUMIN 2.3 g/dL (3.4-4.8); CALCIUM 8.3 mg/dL (8.4-11.0); CREATININE 0.92 mg/dL (0.55-1.30); TOTAL BILIRUBIN 0.7 mg/dL (0.0-1.0)
[2022-08-05] MEDS ORDERED: KCL 40 mEq in 100 mL (PREMIX) 100 ML IV PRN (10:15)
[2022-08-05] MEDS: LACTOBACILLUS RHAMNOSUS GG 1 CAP CAPSULE GT SCH ×2 (12:22→20:40)
[2022-08-05] MEDS: MULTIVITAMINS TAB 1 TABLET GT SCH (12:23)
[2022-08-05] MEDS: LevETIRAcetam 500 MG/5 ML UDC ORAL LIQUID GT SCH ×2 (12:23→20:40)
[2022-08-05] MEDS: ATORVASTATIN 20 MG TABLET GT SCH (12:23)
[2022-08-05] MEDS: CHLORHEXIDINE GLUC 0.12% 15 ML MOUTHWASH UDC MM SCH ×2 (12:24→20:41)
[2022-08-05] MEDS: POLYETHYLENE GLYCOL 3350, 17 GM/ POWD.PACK PO SCH (12:24)
[2022-08-05] MEDS: BALSAM PERU/CASTOR OIL 56.7 GM OINT...G. TP SCH (12:24)
[2022-08-05] MEDS: SENNOSIDES/DOCUSATE SODIUM 1 TAB TABLET(SENOKOT-S) GT SCH (12:24)
[2022-08-05] MEDS: D5W 1,000 ML IV SCH (12:26)
[2022-08-05] MEDS: AMIODARONE HCL 450 MG in D5W 241 ML IV SCH (12:28)
[2022-08-05] MEDS ORDERED: MEROPENEM 1 GM in NS 100 ML IV ONE (18:00)
[2022-08-05] MEDS ORDERED: POTASSIUM CHLORIDE 40 MEQ in D5W 250 ML IV SCH (20:00)
[2022-08-05] MEDS: POTASSIUM CHLORIDE 40 MEQ in NS 250 ML IV SCH (20:41)
[2022-08-05] MEDS: MEROPENEM 1 GM in NS 100 ML IV SCH (23:10)
[2022-08-06] VITALS (28 sets, daily range): BP systolic 110–154
[2022-08-06] MEDS: POTASSIUM CHLORIDE 40 MEQ in NS 250 ML IV SCH (00:46)
[2022-08-06] MEDS: PANTOPRAZOLE SODIUM 40 MG in NS 50 ML IV SCH ×5 (03:09→23:17)
[2022-08-06] MEDS: AMIODARONE HCL 450 MG in D5W 241 ML IV SCH (03:23)
[2022-08-06] MEDS: MEROPENEM 1 GM in NS 100 ML IV SCH ×3 (05:01→22:47)
[2022-08-06] MEDS: D5W 1,000 ML IV SCH ×2 (06:03→18:43)
[2022-08-06] MEDS: metroNIDAZOLE 500 mg/NS 100 ML IV SCH ×3 (06:03→22:49)
[2022-08-06 07:07] LABS: BASOPHILS % (AUTO) 0.1 % (0.0-2.0); EOSINOPHILS # (AUTO) 0.1 K/uL (0.0-0.4); EOSINOPHILS % (AUTO) 1.9 % (0.0-4.0); HEMATOCRIT 23.4 % (36-54); HEMOGLOBIN 7.6 g/dL (14.0-18.0); LYMPHOCYTES # (AUTO) 0.5 K/uL (1.0-5.5); LYMPHOCYTES % (AUTO) 16.3 % (20.5-51.5); MEAN CORPUSCULAR HEMOGLOBIN 30 pg (27-31); MEAN CORPUSCULAR HGB CONC 32 % (32-36); MEAN CORPUSCULAR VOLUME 94 fL (79.0-98.0); MONOCYTES # (AUTO) 0.2 K/uL (0.0-1.0); MONOCYTES % (AUTO) 6.3 % (1.7-9.3); NEUTROPHILS # (AUTO) 2.4 K/uL (1.8-7.7); NEUTROPHILS % (AUTO) 75.4 % (40.0-70.0); RED CELL DISTRIBUTION WIDTH 17.4 % (9.0-15.0); WHITE BLOOD COUNT (AUTO) 3.2 K/uL (4.8-10.8)
[2022-08-06 07:36] LABS: INR 1.2 (0.80-1.20); PROTHROMBIN TIME 12.5 SECS (9.5-12.5)
[2022-08-06 07:54] LABS: ALBUMIN 2.3 g/dL (3.4-4.8); CALCIUM 8.3 mg/dL (8.4-11.0); CREATININE 0.86 mg/dL (0.55-1.30); PHOSPHORUS 1.7 mg/dL (2.7-4.5); TOTAL BILIRUBIN 0.5 mg/dL (0.0-1.0)
[2022-08-06 07:57] LABS: PLATELET COUNT (AUTO) 28 K/uL (130-430)
[2022-08-06] MEDS ORDERED: LACTOBACILLUS RHAMNOSUS GG 1 CAP CAPSULE PO SCH (10:45)
[2022-08-06] MEDS: LACTOBACILLUS RHAMNOSUS GG 1 CAP CAPSULE GT SCH ×2 (10:48→22:46)
[2022-08-06] MEDS: ATORVASTATIN 20 MG TABLET GT SCH (10:49)
[2022-08-06] MEDS: POLYETHYLENE GLYCOL 3350, 17 GM/ POWD.PACK PO SCH (10:49)
[2022-08-06] MEDS: SENNOSIDES/DOCUSATE SODIUM 1 TAB TABLET(SENOKOT-S) GT SCH (10:49)
[2022-08-06] MEDS: MULTIVITAMINS TAB 1 TABLET GT SCH (10:49)
[2022-08-06] MEDS: BALSAM PERU/CASTOR OIL 56.7 GM OINT...G. TP SCH (10:50)
[2022-08-06] MEDS ORDERED: POTASSIUM CHLORIDE 20 MEQ/PKT PACKET PO ONE (11:00)
[2022-08-06] MEDS: CHLORHEXIDINE GLUC 0.12% 15 ML MOUTHWASH UDC MM SCH ×2 (11:02→22:47)
[2022-08-06] MEDS: LevETIRAcetam 500 MG/5 ML UDC ORAL LIQUID GT SCH ×2 (11:02→22:46)
[2022-08-06 11:22] LABS: TOTAL IRON BIND. CAPACITY 252 ug/dL (250-450)
[2022-08-06] MEDS ORDERED: K PHOS 15 MM in NS 250 ML IV ONE (12:00)
[2022-08-06] MEDS: POTASSIUM CHLORIDE 20 MEQ/PKT PACKET PO SCH (21:00)
[2022-08-06] MEDS: AMIODARONE HCL 200 MG TABLET PO SCH (22:48)
[2022-08-07 02:12] VITALS: BP_SYST 152
[2022-08-07] MEDS: D5W 1,000 ML IV SCH ×2 (04:38→13:34)
[2022-08-07] MEDS: PANTOPRAZOLE SODIUM 40 MG in NS 50 ML IV SCH ×4 (04:40→20:56)
[2022-08-07] MEDS: MEROPENEM 1 GM in NS 100 ML IV SCH ×2 (05:36→13:09)
[2022-08-07] MEDS: metroNIDAZOLE 500 mg/NS 100 ML IV SCH ×2 (06:14→10:58)
[2022-08-07 07:11] LABS: ALBUMIN 2.3 g/dL (3.4-4.8); CALCIUM 8.1 mg/dL (8.4-11.0); CREATININE 0.83 mg/dL (0.55-1.30); TOTAL BILIRUBIN 0.5 mg/dL (0.0-1.0)
[2022-08-07 07:24] LABS: HEMATOCRIT 26.3 % (36-54); HEMOGLOBIN 8.4 g/dL (14.0-18.0); MEAN CORPUSCULAR HEMOGLOBIN 30 pg (27-31); MEAN CORPUSCULAR HGB CONC 32 % (32-36); MEAN CORPUSCULAR VOLUME 94 fL (79.0-98.0); RED BLOOD CELL COUNT(AUTO) 2.81 MIL/uL (4.2-6.2); RED CELL DISTRIBUTION WIDTH 17.7 % (9.0-15.0); WHITE BLOOD COUNT (AUTO) 4.7 K/uL (4.8-10.8)
[2022-08-07 08:00] VITALS: BP_SYST 131
[2022-08-07 08:22] VITALS: BP_SYST 134
[2022-08-07 08:59] LABS: PLATELET COUNT (AUTO) 47 K/uL (130-430)
[2022-08-07] MEDS: BALSAM PERU/CASTOR OIL 56.7 GM OINT...G. TP SCH (09:00)
[2022-08-07 10:52] LABS: ATYPICAL LYMPHOCYTES % 3 % (0-0); BAND % (MANUAL) 3 % (0-6); BASOPHILS % (MANUAL) 0 % (0-2); EOSINOPHILS % (MANUAL) 0 % (0-7); LYMPHOCYTES % (MANUAL) 11 % (20-46); MONOCYTES % (MANUAL) 5 % (0-11)
[2022-08-07] MEDS: POLYETHYLENE GLYCOL 3350, 17 GM/ POWD.PACK PO SCH (10:55)
[2022-08-07] MEDS: LevETIRAcetam 500 MG/5 ML UDC ORAL LIQUID GT SCH ×2 (10:55→21:02)
[2022-08-07] MEDS: LACTOBACILLUS RHAMNOSUS GG 1 CAP CAPSULE GT SCH ×2 (10:56→21:01)
[2022-08-07] MEDS: MULTIVITAMINS TAB 1 TABLET GT SCH (10:56)
[2022-08-07] MEDS: SENNOSIDES/DOCUSATE SODIUM 1 TAB TABLET(SENOKOT-S) GT SCH (10:56)
[2022-08-07] MEDS: POTASSIUM CHLORIDE 20 MEQ/PKT PACKET PO SCH ×2 (10:56→21:02)
[2022-08-07] MEDS: AMIODARONE HCL 200 MG TABLET PO SCH ×2 (10:56→21:00)
[2022-08-07] MEDS: ATORVASTATIN 20 MG TABLET GT SCH (10:57)
[2022-08-07] MEDS: CHLORHEXIDINE GLUC 0.12% 15 ML MOUTHWASH UDC MM SCH ×2 (10:57→21:03)
[2022-08-07 11:45] VITALS: BP_SYST 145
[2022-08-07 15:10] VITALS: BP_SYST 141
[2022-08-07 19:00] VITALS: BP_SYST 152
[2022-08-07] MEDS ORDERED: SOD FERRIC GLUC COMPLEX/SUC 125 MG in NS 100 ML IV SCH (19:00)
[2022-08-07] MEDS ORDERED: EPOETIN ALFA-EPBX 4,000 UNITS/ML VIAL SUBCUT ONE (19:00)
[2022-08-07] MEDS ORDERED: PANTOPRAZOLE SODIUM 40 MG/VIAL (PROTONIX) ONE (20:50)
[2022-08-08 00:19] VITALS: BP_SYST 133
[2022-08-08] MEDS: metroNIDAZOLE 500 mg/NS 100 ML IV SCH ×2 (00:26→06:31)
[2022-08-08] MEDS: PANTOPRAZOLE SODIUM 40 MG in NS 50 ML IV SCH ×2 (00:27→06:32)
[2022-08-08] MEDS: MEROPENEM 1 GM in NS 100 ML IV SCH ×3 (00:27→14:06)
[2022-08-08] MEDS: D5W 1,000 ML IV SCH (00:44)
[2022-08-08] MEDS: ACETAMINOPHEN 650 MG/20.3 ML UDC GT PRN (01:03)
[2022-08-08 08:00] VITALS: BP_SYST 135
[2022-08-08 08:25] LABS: BASOPHILS % (AUTO) 0.4 % (0.0-2.0); EOSINOPHILS # (AUTO) 0.1 K/uL (0.0-0.4); EOSINOPHILS % (AUTO) 1.5 % (0.0-4.0); HEMATOCRIT 25.3 % (36-54); HEMOGLOBIN 8.2 g/dL (14.0-18.0); LYMPHOCYTES % (AUTO) 17.4 % (20.5-51.5); MEAN CORPUSCULAR HEMOGLOBIN 30 pg (27-31); MEAN CORPUSCULAR HGB CONC 32 % (32-36); MEAN CORPUSCULAR VOLUME 93 fL (79.0-98.0); MONOCYTES # (AUTO) 0.4 K/uL (0.0-1.0); MONOCYTES % (AUTO) 6.9 % (1.7-9.3); NEUTROPHILS # (AUTO) 4.4 K/uL (1.8-7.7); NEUTROPHILS % (AUTO) 73.8 % (40.0-70.0); PLATELET COUNT (AUTO) 61 K/uL (130-430); RED BLOOD CELL COUNT(AUTO) 2.71 MIL/uL (4.2-6.2); RED CELL DISTRIBUTION WIDTH 17.3 % (9.0-15.0)
[2022-08-08 08:51] LABS: ALBUMIN 2.1 g/dL (3.4-4.8); CALCIUM 7.4 mg/dL (8.4-11.0); CREATININE 0.82 mg/dL (0.55-1.30); TOTAL BILIRUBIN 0.3 mg/dL (0.0-1.0)
[2022-08-08] MEDS: LevETIRAcetam 500 MG/5 ML UDC ORAL LIQUID GT SCH (09:40)
[2022-08-08] MEDS: POLYETHYLENE GLYCOL 3350, 17 GM/ POWD.PACK PO SCH (09:40)
[2022-08-08] MEDS: LACTOBACILLUS RHAMNOSUS GG 1 CAP CAPSULE GT SCH (09:41)
[2022-08-08] MEDS: MULTIVITAMINS TAB 1 TABLET GT SCH (09:41)
[2022-08-08] MEDS: ATORVASTATIN 20 MG TABLET GT SCH (09:41)
[2022-08-08] MEDS: POTASSIUM CHLORIDE 20 MEQ/PKT PACKET PO SCH (09:41)
[2022-08-08] MEDS: SENNOSIDES/DOCUSATE SODIUM 1 TAB TABLET(SENOKOT-S) GT SCH (09:41)
[2022-08-08] MEDS: AMIODARONE HCL 200 MG TABLET PO SCH (09:42)
[2022-08-08] MEDS: CHLORHEXIDINE GLUC 0.12% 15 ML MOUTHWASH UDC MM SCH (09:42)
[2022-08-08] MEDS: BALSAM PERU/CASTOR OIL 56.7 GM OINT...G. TP SCH (09:45)
[2022-08-08 11:50] VITALS: BP_SYST 118
[2022-08-08] MEDS: ALBUTEROL SULFATE 0.083% 2.5 MG/3 ML VIAL.NEB INH PRN (12:07)
[2022-08-08] MEDS ORDERED: POTASSIUM CHLOR 20 mEq/Packet PO (13:47)
[2022-08-08] MEDS ORDERED: AMIO200T61 PO (13:47)
[2022-08-08] MEDS ORDERED: MERO1VIA23 IV ×2 (13:59→14:06)
[2022-08-08] MEDS ORDERED: MENTHOL/ZINC OXIDE 113 GM OINT. TP PRN (16:30)
[2022-08-08] MEDS ORDERED: BALSAM PERU/CASTOR OIL 56.7 GM OINT...G. TP SCH (16:30)
[2022-08-09] MEDS ORDERED: EPOETIN ALFA-EPBX 4,000 UNITS/ML VIAL SUBCUT SCH (17:00)
== END 2022-08-08 15:46 | DRG 720 ==
LOC: SED 10:23 → STU 13:17 → SIC 14:05 → SMU 08-06 19:56 → STU 08-06 21:51
PROVIDERS: ADMIT Internal Medicine; ATTEND Internal Medicine
PROC: 5A1955Z Respiratory Ventilation, Greater than 96 Consecutive Hours (ICD-10-PCS; principal; 2022-08-01)
PROC: 05HY33Z Insertion of Infusion Device into Upper Vein, Percutaneous Approach (ICD-10-PCS; 2022-08-01)
PROC: 30233N1 Transfusion of Nonautologous Red Blood Cells into Peripheral Vein, Percutaneous Approach (ICD-10-PCS; 2022-08-04)
DX: A41.59 Other Gram-negative sepsis (principal); N17.0 Acute kidney failure with tubular necrosis; R65.21 Severe sepsis with septic shock; G82.50 Quadriplegia, unspecified; L89.209 Pressure ulcer of unspecified hip, unspecified stage; J18.9 Pneumonia, unspecified organism; D68.9 Coagulation defect, unspecified; E87.0 Hyperosmolality and hypernatremia; D69.6 Thrombocytopenia, unspecified; Z99.11 Dependence on respirator [ventilator] status; Z93.0 Tracheostomy status; G93.1 Anoxic brain damage, not elsewhere classified; J96.10 Chronic respiratory failure, unspecified whether with hypoxia or hypercapnia; Z20.822 Contact with and (suspected) exposure to COVID-19; A09 Infectious gastroenteritis and colitis, unspecified; K63.89 Other specified diseases of intestine; I10 Essential (primary) hypertension; K21.9 Gastro-esophageal reflux disease without esophagitis; E11.9 Type 2 diabetes mellitus without complications; D64.9 Anemia, unspecified; G40.909 Epilepsy, unspecified, not intractable, without status epilepticus; N13.6 Pyonephrosis; N20.0 Calculus of kidney; N13.9 Obstructive and reflux uropathy, unspecified; R13.10 Dysphagia, unspecified; E56.1 Deficiency of vitamin K; E87.5 Hyperkalemia; Z86.73 Personal history of transient ischemic attack (TIA), and cerebral infarction without residual deficits; Z93.1 Gastrostomy status; Z93.3 Colostomy status; Z98.2 Presence of cerebrospinal fluid drainage device; Z87.891 Personal history of nicotine dependence; Z90.49 Acquired absence of other specified parts of digestive tract; Z74.01 Bed confinement status; L89.159 Pressure ulcer of sacral region, unspecified stage
CPT/HCPCS: 36415; 36600; 71045; 74018; 74250-TC; 76376; 80048; 80053; 81000; 82803-TC; 82962; 83540; 83550; 83605; 83735; 83880; 84100; 84484; 85007; 85025; 85027; 85384; 85610-TC; 85730-TC; 86886; 86900; 86901; 86920; 87040; 87081; 87086; 92950; 93005; 93306; 94002; 94003; 94640; 94760; 99285; C9113; G0378; J0282; J0610; J0692; J0696; J1650; J1940; J1956; J2185; J2543; J2916; J3430; J3480; J3490; J7050; J7060; J7613; P9021; Q5106; Q9963